=== PATIENT | female | born 2000 | race Two or more races ===

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

== ENCOUNTER 2018-02-25 15:25 | Emergency (ER) | payer MEDICAID ==
[~2018-02-25] VITALS: Ht 167.6 cm; Wt 96.3 kg
[2018-02-25 16:33] LABS: BASOPHILS # (AUTO) 0.01 x10^3/uL (0-0.3); BASOPHILS % (AUTO) 0 % (0-1); EOSINOPHILS # (AUTO) 0.31 x10^3/uL (0-0.8); EOSINOPHILS % (AUTO) 5 % (1-7); LYMPHOCYTES % (AUTO) 28 % (22-44); MD NO; MEAN CORPUSCULAR HEMOGLOBIN 28.9 pg (27.0-34.8); MEAN CORPUSCULAR HGB CONC 33.3 g/dL (32.4-35.8); MEAN CORPUSCULAR VOLUME 86.6 fL (80-100); MEAN PLATELET VOLUME 7.6 fL (7.4-10.4); MONOCYTES # (AUTO) 0.48 x10^3/uL (0-1.4); MONOCYTES % (AUTO) 8 % (2-9); NEUTROPHILS # (AUTO) 3.55 x10^3/uL (1.8-8.0); NEUTROPHILS % (AUTO) 59 % (42-75); PLATELET COUNT 318 x10^3/uL (130-400); RED BLOOD COUNT 5.04 x10^6/uL (3.82-5.3); RED CELL DISTRIBUTION WIDTH 14.6 % (9.6-15.2)
[2018-02-25 16:44] LABS: ALBUMIN 3.8 g/dL (3.4-5.0); ANION GAP 7 mmol/L (5-15); CALCIUM 8.9 mg/dL (8.5-10.1); CHLORIDE 110 mmol/L (98-107); CREATININE 1.07 mg/dL (0.55-1.02)
[2018-02-25 18:27] LABS: CULTURE INDICATED? YES; MICROSCOPIC INDICATED
[2018-02-25 19:49] VITALS: BP 108/57
== END 2018-02-25 19:51 | disposition home or self-care (01) ==
LOC: ED 16:44
DX: R10.32 Left lower quadrant pain (principal); Z32.01 Encounter for pregnancy test, result positive; G43.909 Migraine, unspecified, not intractable, without status migrainosus; F32.9 Major depressive disorder, single episode, unspecified
CPT/HCPCS: 36415; 76830; 80048; 81001; 82040; 84702; 84703; 85025; 87086; 99284

== ENCOUNTER 2020-02-01 11:47 | Emergency (ER) | payer MEDICAID ==
[~2020-02-01] VITALS: Ht 170.2 cm; Wt 83.9 kg
[2020-02-01 11:49] VITALS: BP 132/71
[2020-02-01] MEDS ORDERED: MAALOX/HYOSCYAMINE/LIDOCAINE 45 ML BTL PO ONE (12:30)
[2020-02-01] MEDS ORDERED: MAALOX/HYOSCYAMINE/LIDOCAINE 45 ML BTL ONE (12:49)
== END 2020-02-01 13:44 | disposition home or self-care (01) ==
LOC: ED 12:39
DX: R07.89 Other chest pain (principal); R00.0 Tachycardia, unspecified; K21.9 Gastro-esophageal reflux disease without esophagitis; Z90.89 Acquired absence of other organs
CPT/HCPCS: 71045; 93005; 99283

== ENCOUNTER 2020-09-13 14:06 | Emergency (ER) | payer MEDICAID ==
[~2020-09-13] VITALS: Ht 167.6 cm; Wt 89.1 kg
[2020-09-13] MEDS ORDERED: ACETAMINOPHEN 500 MG TABLET PO ONE (14:30)
--- NOTE | 2020-09-13 14:31 | NUR ---
PT PRESENTS TO ED WITH C/O VB AND CRAMPING X3 DAYS, 12 WEEKS . PT A&O, RESPS EVEN AND UNLABORED, VSS, NADN. MARIA ISABEL ROBERTS AT BEDSIDE FOR EVAL.
[2020-09-13] MEDS ORDERED: ACETAMINOPHEN 500 MG TABLET ONE (14:33)
--- NOTE | 2020-09-13 14:50 | NUR ---
pt to US
[2020-09-13 14:59] LABS: ALANINE AMINOTRANSFERASE 20 U/L (12-78); ALBUMIN 3.6 g/dL (3.4-5.0); ANION GAP 5 mmol/L (5-15); CALCIUM 8.7 mg/dL (8.5-10.1); CHLORIDE 109 mmol/L (98-107); CREATININE 0.72 mg/dL (0.55-1.02)
--- NOTE | 2020-09-13 15:16 | NUR ---
PT BACK FROM US
[2020-09-13 15:17] LABS: ALKALINE PHOSPHATASE 62 U/L (45-117); BILIRUBIN,TOTAL 0.2 mg/dL (0.2-1.0); TOTAL PROTEIN 6.9 g/dL (6.4-8.2)
[2020-09-13 15:19] LABS: BASOPHILS % (AUTO) 0 % (0-1); EOSINOPHILS % (AUTO) 3 % (1-7); LYMPHOCYTES % (AUTO) 20 % (22-44); MEAN CORPUSCULAR HEMOGLOBIN 31.2 pg (27.0-34.8); MEAN CORPUSCULAR HGB CONC 34.1 g/dL (32.4-35.8); MEAN PLATELET VOLUME 7.6 fL (7.4-10.4); MONOCYTES % (AUTO) 7 % (2-9); NEUTROPHILS % (AUTO) 70 % (42-75); PLATELET COUNT 271 x10^3/uL (130-400); RED BLOOD COUNT 4.04 x10^6/uL (3.82-5.3); RED CELL DISTRIBUTION WIDTH 13.6 % (9.6-15.2)
[2020-09-13 15:29] VITALS: BP 114/53
--- NOTE | 2020-09-13 15:29 | NUR ---
PT RESTING IN BED, A&O, RESPS EVEN AND UNLABORED, VSS, NADN. PAIN CONTROLLED WITH PAIN MEDICATION ADMIN PER ORDER. CALL LIGHT IN REACH.
--- NOTE | 2020-09-13 15:40 | NUR ---
LOBO MACIAS AT BEDSIDE TO DISCUSS POC
--- NOTE | 2020-09-13 15:55 | NUR ---
DISCHARGE INSTRUCTIONS REVIEWED, PT VERBALIZED UNDERSTANDING. AMBULATORY TO DISCHARGE WITH STEADY GAIT.
== END 2020-09-13 15:57 | disposition home or self-care (01) ==
LOC: ED 15:15
DX: O03.4 Incomplete spontaneous abortion without complication (principal); Z32.01 Encounter for pregnancy test, result positive; G43.909 Migraine, unspecified, not intractable, without status migrainosus
CPT/HCPCS: 36415; 76801; 80053; 84702; 85025; 86901; 99284

== ENCOUNTER 2020-11-13 21:48 | Emergency (ER) | payer MEDICAID ==
[~2020-11-13] VITALS: Ht 167.6 cm; Wt 88.5 kg
[2020-11-13 22:00] VITALS: BP 143/77
--- NOTE | 2020-11-14 01:00 | NUR ---
NA X 1 FOR LAB
--- NOTE | 2020-11-14 01:28 | NUR ---
NA X 2 FOR LAB
--- NOTE | 2020-11-14 01:55 | NUR ---
PT CALLED FOR ROOM. NA X 3
== END 2020-11-14 01:57 | disposition left against medical advice (07) ==
LOC: ED 22:00
DX: R10.9 Unspecified abdominal pain (principal); R11.10 Vomiting, unspecified; R94.31 Abnormal electrocardiogram [ECG] [EKG]
CPT/HCPCS: 71045; 93005; 99283; 99285

== ENCOUNTER 2020-11-16 20:49 | Inpatient (IN) | payer MEDICAID ==
[~2020-11-16] VITALS: Ht 167.6 cm; Wt 85.3 kg
[2020-11-16] MEDS ORDERED: ONDANSETRON ODT 4 MG PO PRN (21:30)
[2020-11-16] MEDS ORDERED: POLYETHYLENE GLYCOL 17 GM PACKET PO PRN (21:30)
[2020-11-16] MEDS ORDERED: DOCUSATE 100 MG CAPSULE PO PRN (21:30)
[2020-11-16] MEDS ORDERED: BISACODYL 10 MG SUPP PR PRN (21:30)
[2020-11-16 23:30] VITALS: BP 135/88
[2020-11-16] MEDS ORDERED: TRAZODONE 50MG TABLET ONE (23:56)
[2020-11-17] MEDS ORDERED: TRAZODONE 50MG TABLET PO PRN
[2020-11-17 06:32] LABS: BASOPHILS % (AUTO) 1 % (0-1); EOSINOPHILS % (AUTO) 5 % (1-7); LYMPHOCYTES % (AUTO) 42 % (22-44); MEAN CORPUSCULAR HEMOGLOBIN 31.1 pg (27.0-34.8); MEAN CORPUSCULAR HGB CONC 33.8 g/dL (32.4-35.8); MEAN PLATELET VOLUME 7.7 fL (7.4-10.4); MONOCYTES % (AUTO) 8 % (2-9); NEUTROPHILS % (AUTO) 44 % (42-75); PLATELET COUNT 337 x10^3/uL (130-400); RED BLOOD COUNT 5.03 x10^6/uL (3.82-5.3)
[2020-11-17 06:39] LABS: MICROSCOPIC INDICATED
[2020-11-17 06:41] LABS: CHLORIDE 103 mmol/L (98-107)
[2020-11-17 06:42] VITALS: BP 110/76
[2020-11-17 07:13] LABS: ANION GAP 10 mmol/L (5-15); CALCIUM 9.9 mg/dL (8.5-10.1); CHOL/HDL RATIO 3.2; CHOLESTEROL, TOTAL 181 mg/dL (140-239); CREATININE 1.03 mg/dL (0.55-1.02); FREE T4 (FREE THYROXINE) 1.39 ng/dL (0.76-1.46); HDL CHOL % 31 % (28-40); HDL CHOLESTEROL (DIRECT) 57 mg/dL (40-60); LDL CHOLESTEROL,CALCULATED 93 mg/dL (54-169); LDL/HDL RATIO 1.6 (0.5-3.0); TRIGLYCERIDES 156 mg/dL (50-200); VLDL CHOLESTEROL 31 mg/dL (0-25)
[2020-11-17] MEDS: ACETAMINOPHEN 325 MG TABLET PO PRN (08:34)
[2020-11-17] MEDS: NICOTINE 14MG/24 HR PATCH.TD24 TD SCH (08:36)
[2020-11-17 19:43] VITALS: BP 122/79
[2020-11-17] MEDS: MELATONIN 5 MG TABLET PO SCH (20:11)
[2020-11-17] MEDS: ZIPRASIDONE 20MG CAPSULE PO SCH (20:11)
[2020-11-18 07:28] VITALS: BP 112/69
[2020-11-18] MEDS: NICOTINE 14MG/24 HR PATCH.TD24 TD SCH (09:23)
[2020-11-18] MEDS: ESCITALOPRAM 10MG TABLET PO SCH (09:24)
[2020-11-18 19:35] VITALS: BP 128/78
[2020-11-18] MEDS: MELATONIN 5 MG TABLET PO SCH (20:24)
[2020-11-18] MEDS: ZIPRASIDONE 20MG CAPSULE PO SCH (20:24)
[2020-11-18] MEDS: ACETAMINOPHEN 325 MG TABLET PO PRN (20:30)
[2020-11-19 07:28] VITALS: BP 111/75
[2020-11-19] MEDS: ESCITALOPRAM 10MG TABLET PO SCH (08:39)
[2020-11-19] MEDS: NICOTINE 14MG/24 HR PATCH.TD24 TD SCH (08:40)
[2020-11-19 19:12] VITALS: BP 117/89
[2020-11-19] MEDS: MELATONIN 5 MG TABLET PO SCH (20:30)
[2020-11-19] MEDS: ZIPRASIDONE 20MG CAPSULE PO SCH (20:30)
[2020-11-20 07:31] VITALS: BP 104/67
[2020-11-20] MEDS: NICOTINE 14MG/24 HR PATCH.TD24 TD SCH (08:46)
[2020-11-20] MEDS: ESCITALOPRAM 10MG TABLET PO SCH (08:46)
[2020-11-20] MEDS ORDERED: MELA5TAB14 PO (10:53)
[2020-11-20] MEDS ORDERED: NICO-486 TD (10:53)
[2020-11-20] MEDS ORDERED: ZIPR20CA2 PO (10:53)
[2020-11-20] MEDS ORDERED: ESCI10TA97 PO (10:53)
== END 2020-11-20 13:53 | disposition home or self-care (01) | DRG 885 ==
LOC: 3E 23:14
PROVIDERS: ADMIT Psychiatry & Neurology Psychosomatic Medicine; ATTEND Psychiatry & Neurology Psychosomatic Medicine
DX: F33.3 Major depressive disorder, recurrent, severe with psychotic symptoms (principal); D68.0 Von Willebrand disease; R45.851 Suicidal ideations; F12.10 Cannabis abuse, uncomplicated; F17.210 Nicotine dependence, cigarettes, uncomplicated; F15.21 Other stimulant dependence, in remission; G47.00 Insomnia, unspecified; G43.909 Migraine, unspecified, not intractable, without status migrainosus; Z86.718 Personal history of other venous thrombosis and embolism; Z91.14 Patient's other noncompliance with medication regimen; Z91.19 Patient's noncompliance with other medical treatment and regimen; Z91.5 Personal history of self-harm
CPT/HCPCS: 36415; 80048; 80061; 81001; 82607; 84439; 84443; 84703; 85025; 93005; Q0162